=== PATIENT | male | born 1955 | race Caucasian/White ===

== ENCOUNTER → 2017-03-21 | Day surgery (SDC) | payer OTHER ==
[~2017-03-21] VITALS: Ht 175.3 cm; Wt 77.3 kg
[~2017-03-21] MED LIST: BUPIVACAINE HCL PF 0.5% 30 ML VIAL ONE; CEPH-460 PO; CHLORHEXIDINE GLUCONATE 2 % 1 PACK (2 CLOTHS) TOPICAL PRN; CLAR10CA3 PO; ESOM1TAB PO; FAMOTIDINE 20 MG/2 ML VIAL ONE; HYDR-3288 PO; HYDR12.56 PO; IBUP1TAB7 PO; LACTATED RINGER'S 1000 ML IV PRN; LIDOCAINE HCL 2% 50 ML VIAL ONE; LISI10TA3 PO; METH27 PO; METOPROLOL TARTRATE 25 MG TAB PO PRN; MIDAZOLAM HCL 2 MG/2 ML VIAL ONE; NEOMYCIN/POLYMYXIN 1 ML G.U. IRRIGANT ONE; POVIDONE IODINE 5% (ANTISEPSIS KIT) 4 APPLICATIONS EACH NARE PRN; PROPOFOL 200 MG/20 ML AMP ONE; SODIUM CHLORID 0.9% 500 ML IV PRN; ceFAZolin 2 GM PREMIX 50 ML IV SCH
[2017-03-21 09:29] LABS: HEMATOCRIT 36.8 % (39.0-51.0); MEAN CELL VOLUME 85.7 FL (80.0-100.0); MEAN CORPUSCULAR HEMOGLOBIN 27.9 PG (27.0-34.0); MEAN CORPUSCULAR HGB CONC 32.5 % (32.0-36.0); PLATELET COUNT 208 TH/MM3 (150-450); RED BLOOD COUNT 4.29 MIL/MM3 (4.50-5.90); RED CELL DISTRIBUTION WIDTH 13.2 % (11.6-17.2); REVIEW FLAG FINAL; WHITE BLOOD COUNT 4.6 TH/MM3 (4.0-11.0)
[2017-03-21 12:15] VITALS: BP 123/85; PULSE 81; RESP 16; TEMP 97.8; O2SAT 99
--- NOTE | 2017-03-21 12:42 | MP ---
cc: SAAD VOSS III, M.D. DATE OF SURGERY: 03/21/2017 PREOPERATIVE DIAGNOSIS 1. Left carpal tunnel syndrome. 2. Left fourth trigger finger. 3. Right thumb mucocyst. PROCEDURE 1. Left open carpal tunnel release. 2. Left fourth A1 nino release. 3. Right thumb mucous cyst excision. SURGEON Saad Voss III, MD PROCEDURE The patient was brought to the operating room and placed supine on the operating table. After the appropriate site and side of surgery were verified my members of each team in the room multiple times including the patient, myself, and after adequate preoperative timeout was performed and after adequate IV sedation had been achieved, bilateral upper extremities were prepped and draped in traditional sterile surgical fashion. Attention was first paid to the left side and a 50/50 mixture of 2% plain lidocaine, 0.5% plain Marcaine was infiltrated in the skin and subcutaneous tissue and into the carpal tunnel at the base of the palm. The same mixture was used to infiltrate the skin and subcutaneous tissue over the left fourth A1 nino. The limb was exsanguinated with an Robert wrap and a highly placed, well-padded axillary tourniquet was inflated to 200 mmHg for total of 20 minutes. A longitudinally oriented incision in the skin crease at the base of the palm was made and carried down through skin and subcutaneous tissue. Blunt dissection was performed. Palmar fascia was retracted in opposite directions. The transverse carpal ligament was identified and divided in its entirety in the ulnar side of midline from its proximal most to its distal-most extents. There was a noticeable area of deformation of the nerve at the very base of the palm at the wrist crease and there is a noticeable rebound in the nerve once this was released. Exploration proximally and distally revealed no other bands of crossing tissue, no other areas of mass effect, and no other anatomic abnormalities. There was a moderately hypertrophic tenosynovium as well. Thorough irrigation with a liter of saline was then performed. The skin edges reapproximated using running and interrupted 4-0 Nylon suture. Attention was then paid to the left fourth A1 nino. Transverse oriented incision within the skin crease was made and carried down through skin and subcutaneous tissue. Blunt dissection was performed. The A1 nino was identified and divided in its midline from its proximal most to its distal-most extents. There was an investing sheath proximally from chronic irritation and inflammation and this was disrupted as well. There are no other crossing bands of tissue or any scar tissue formation proximally or distally. The flexor tendons otherwise appeared healthy and normal. There were no other anatomic abnormalities identified. Thorough irrigation with saline was performed and the skin edges were reapproximated using running 4-0 Nylon suture. The hand and arm were thoroughly cleansed and dried. Betadine and Adaptic dressings were applied on top of the wound followed by a bulky soft dressing, then a circumferential soft roll and an Robert wrap to follow. The axillary tourniquet was released and the hand and all the fingers became immediately soft, pink and warm and had brisk capillary refill of less than 2 seconds. Attention was then paid to the right thumb which had been prepped and draped. A radially sided digital block using the same 50/50 mixture of 2% plain lidocaine, 0.5% plain Marcaine was infiltrated at the metacarpal level. Two smallest gloves from a size six sterile glove was made to fashion as a finger tourniquet. T-shaped incision dorsally over the radial side of the IP joint of the thumb was made and carried down through skin and subcutaneous tissue, blunt dissection was performed to elevate the skin flap. The area of the inflammation leading from the mucocyst was easily identified and debrided in its entirety down to the IP joint. Osteophytes were also debrided down to smooth surfaces. All inflammatory tissue was debrided sharply and any remnants of the tract from the mucocyst were abraded with a curette. Thorough irrigation was performed as well as the joint was flushed out the angiocatheter using saline. There were no other anatomic abnormalities identified. The skin edges reapproximated using running and interrupted 5-0 Nylon sutures. The cyst thoroughly was then debrided, once the skin edges were closed and thoroughly flushed out. The hand and arm were thoroughly cleansed and dried. Betadine, Adaptic dressing was applied on top of the wound. The finger tourniquet was released and then the thumb became immediately soft, pink, warm and had brisk capillary refill of less 2 seconds. A bulky circumferential dressing was applied, keeping a little bit of pressure on the thumb in the usual fashion. The patient was awakened from anesthesia and transported to the Post Anesthesia Care Unit awake and in stable condition at the end of the case. Sponge, needle, instrument counts were correct at the end of the case as reported by nurses in the room. MD LULU Osorio III/SHA /11:30 AM /12:07 PM
--- NOTE | 2017-03-22 10:31 | EKG ---
Date Performed: 03/21/2017 Time Performed: 08:52:32 PTAGE: 62 years EKG: Sinus rhythm NORMAL ECG PREVIOUS TRACING : 04/14/2015 11.34 Compared to prior tracing no significant change DOCTOR: Liza Rao Interpretating Date/Time 03/22/2017 10:30:37
== END | disposition home or self-care (01) ==
LOC: PHSDC 08:15
PROVIDERS: ATTEND Orthopaedic Surgery Hand Surgery
DX: G56.02 Carpal tunnel syndrome, left upper limb (principal); M65.342 Trigger finger, left ring finger; M25.841 Other specified joint disorders, right hand; I10 Essential (primary) hypertension
CPT/HCPCS: 01810; 26055; 26160; 36415; 64721; 85027; 93005; J0690; J2250; J7120

== ENCOUNTER → 2017-04-04 | Outpatient (CLI) | payer OTHER ==
[~2017-04-04] MED LIST changes: -BUPIVACAINE HCL PF 0.5% 30 ML VIAL ONE; -CHLORHEXIDINE GLUCONATE 2 % 1 PACK (2 CLOTHS) TOPICAL PRN; -FAMOTIDINE 20 MG/2 ML VIAL ONE; -LACTATED RINGER'S 1000 ML IV PRN; -LIDOCAINE HCL 2% 50 ML VIAL ONE; -METOPROLOL TARTRATE 25 MG TAB PO PRN; -MIDAZOLAM HCL 2 MG/2 ML VIAL ONE; -NEOMYCIN/POLYMYXIN 1 ML G.U. IRRIGANT ONE; -POVIDONE IODINE 5% (ANTISEPSIS KIT) 4 APPLICATIONS EACH NARE PRN; -PROPOFOL 200 MG/20 ML AMP ONE; -SODIUM CHLORID 0.9% 500 ML IV PRN; -ceFAZolin 2 GM PREMIX 50 ML IV SCH
[2017-04-04 12:56] LABS: HEMATOCRIT 37.9 % (39.0-51.0); MEAN CELL VOLUME 84.3 FL (80.0-100.0); MEAN CORPUSCULAR HEMOGLOBIN 28.8 PG (27.0-34.0); MEAN CORPUSCULAR HGB CONC 34.1 % (32.0-36.0); PLATELET COUNT 239 TH/MM3 (150-450); RED BLOOD COUNT 4.49 MIL/MM3 (4.50-5.90); RED CELL DISTRIBUTION WIDTH 14.2 % (11.6-17.2); REVIEW FLAG FINAL; WHITE BLOOD COUNT 4.2 TH/MM3 (4.0-11.0)
[2017-04-04 13:17] LABS: ALT (GPT) 37 U/L (12-78); ANION GAP 8 MEQ/L (5-15); AST (GOT) 30 U/L (15-37); BICARBONATE 29.3 MEQ/L (21.0-32.0); BLOOD UREA NITROGEN 12 MG/DL (7-18); CHLORIDE 99 MEQ/L (98-107); GLOMERULAR FILTRATION RATE 61 ML/MIN (>89); GLUCOSE,FASTING 128 MG/DL (74-99); SODIUM (NA) 136 MEQ/L (136-145)
[2017-04-04 13:27] LABS: ALKALINE PHOSPHATASE 73 U/L (45-117); HDL CHOLESTEROL 58.4 MG/DL (40.0-60.0); LDL CHOLESTEROL 181 MG/DL (0-99); TOTAL BILIRUBIN ADULT 0.6 MG/DL (0.2-1.0)
== END ==
LOC: CLAB 12:36
PROVIDERS: ATTEND Family Medicine
DX: Z00.00 Encounter for general adult medical examination without abnormal findings (principal); Z12.5 Encounter for screening for malignant neoplasm of prostate
CPT/HCPCS: 36415; 80053; 80061; 84153; 84443; 85027